=== PATIENT | male | born 1985 | race Caucasian/White ===

== ENCOUNTER 2025-07-06 04:02 | Inpatient (IN) | payer OTHER ==
[~2025-07-06] VITALS: Ht 188 cm; Wt 109.1 kg
[2025-07-06] MEDS ORDERED: CLINDAMYCIN PHOS 150 MG/ML 4 ML VIAL IM ONE (04:30)
[2025-07-06] MEDS: SODIUM CHLORIDE 0.9% 1,000 ML IV ONE (05:34)
[2025-07-06 05:36] LABS: PLATELET COUNT (AUTO) 369 K/uL (150-450); RED BLOOD CELL COUNT(AUTO) 4.86 MIL/uL (4.50-5.90); RED CELL DISTRIBUTION WIDTH 14.3 % (11.5-14.5); WHITE BLOOD COUNT (AUTO) 9.1 K/uL (4.5-11.0)
[2025-07-06] MEDS: FAMOTIDINE 20 MG/2 ML VIAL IVP ONE (05:45)
[2025-07-06 05:46] LABS: CALCIUM, TOTAL 8.7 mg/dL (8.8-10.5); CREATININE 1.05 mg/dL (0.60-1.30); GLOMERULAR FILTR. RATE CALC > 60 mL/min (>60); GLUCOSE,RANDOM 99 mg/dL (70-110); SODIUM SERUM 138 mmol/L (136-145); UREA NITROGEN, BLOOD 8 mg/dL (7-18)
[2025-07-06] MEDS: PB/HYOSCY/ATR/SCOP/LIDO/MAALOX 55 ML BOTTLE PO ONE (05:46)
[2025-07-06] MEDS: MORPHINE SULFATE 2 MG/ML SYRINGE IVP ONE ×2 (06:27→07:48)
[2025-07-06] MEDS: BACITRACIN ZINC/POLYMYXIN B 14.2 GM OINTMENT TP SCH (10:15)
[2025-07-06] MEDS ORDERED: MAGNESIUM HYDROXIDE SUSPENSION 30 ML UDCUP PO PRN (10:15)
[2025-07-06] MEDS: ACETAMINOPHEN 325 MG TABLET PO PRN (11:28)
[2025-07-06 11:44] LABS: APPEARANCE,URINE CLEAR (CLEAR); GLUCOSE, URINE (UA) NEGATIVE (NEGATIVE); LEUKOCYTE ESTERASE ,URINE NEGATIVE (NEGATIVE); NITRATE,URINE NEGATIVE (NEGATIVE); OCCULT BLOOD,URINE NEGATIVE (NEGATIVE); SPECIFIC GRAVITIY, URINE 1.019 (1.003-1.030)
[2025-07-06 11:47] LABS: PH,URINE DRUG SCREEN 7.0 (5.0-8.0)
[2025-07-06 11:54] LABS: ALCOHOL, URINE DRUG SCREEN NEGATIVE (NEGATIVE); AMPHET/METH SCREEN,URINE NEGATIVE (NEGATIVE); BARBITURATE SCREEN, URINE NEGATIVE (NEGATIVE); CANNABINOID SCREEN,URINE NEGATIVE (NEGATIVE); COCAINE SCREEN,URINE NEGATIVE (NEGATIVE); METHADONE SCREEN, URINE NEGATIVE (NEGATIVE)
[2025-07-06 12:57] VITALS: BP 163/97; PULSE 99; RESP 18; TEMP 98.2; O2SAT 96
[2025-07-06] MEDS ORDERED: DOCUSATE SODIUM 100 MG CAPSULE PO SCH (21:00)
[2025-07-06] MEDS ORDERED: PANTOPRAZOLE SODIUM 40 MG/VIAL IVP SCH (21:00)
[2025-07-07] MEDS ORDERED: PANTOPRAZOLE SODIUM 40 MG DR TABLET PO SCH (09:00)
== END 2025-07-06 16:30 | disposition left against medical advice (07) | DRG 395 ==
LOC: EDBD 04:30 → EMS 04:30 → EDH 10:09 → 6S 13:00
PROVIDERS: ADMIT Internal Medicine; ATTEND Internal Medicine
DX: T18.2XXA Foreign body in stomach, initial encounter (principal); E66.9 Obesity, unspecified; F41.9 Anxiety disorder, unspecified; F32.9 Major depressive disorder, single episode, unspecified; W44.A9XA Other batteries entering into or through a natural orifice, initial encounter; S50.812A Abrasion of left forearm, initial encounter; S50.811A Abrasion of right forearm, initial encounter; Z68.30 Body mass index [BMI] 30.0-30.9, adult; Y92.89 Other specified places as the place of occurrence of the external cause; Y93.89 Activity, other specified; Y99.8 Other external cause status
CPT/HCPCS: 70486; 71045; 74018; 74176; 80048; 80307; 81003; 85025; 96361; 96374; 96375; 96376; 99285; G0480; J2270; J3490; J7030; 36415-L1; 36415-TC

== ENCOUNTER 2025-09-19 05:41 | Inpatient (IN) | payer OTHER ==
[~2025-09-19] VITALS: Ht 188 cm; Wt 122.7 kg
[2025-09-19 07:57] LABS: PLATELET COUNT (AUTO) 325 K/uL (150-450); RED BLOOD CELL COUNT(AUTO) 4.84 MIL/uL (4.50-5.90); RED CELL DISTRIBUTION WIDTH 14.4 % (11.5-14.5); WHITE BLOOD COUNT (AUTO) 7.2 K/uL (4.5-11.0)
[2025-09-19 08:06] LABS: APPEARANCE,URINE CLEAR (CLEAR); GLUCOSE, URINE (UA) NEGATIVE (NEGATIVE); LEUKOCYTE ESTERASE ,URINE NEGATIVE (NEGATIVE); NITRATE,URINE NEGATIVE (NEGATIVE); OCCULT BLOOD,URINE NEGATIVE (NEGATIVE); SPECIFIC GRAVITIY, URINE 1.008 (1.003-1.030)
[2025-09-19 08:07] LABS: CALCIUM, TOTAL 8.9 mg/dL (8.8-10.5); CREATININE 0.90 mg/dL (0.60-1.30); GLOMERULAR FILTR. RATE CALC > 60 mL/min (>60); GLUCOSE,RANDOM 99 mg/dL (70-110); SODIUM SERUM 139 mmol/L (136-145); UREA NITROGEN, BLOOD 8 mg/dL (7-18)
[2025-09-19 08:39] LABS: ASPARTATE AMINOTRANSFERASE 26.0 U/L (15-37); TOTAL PROTEIN, SERUM 8.2 g/dL (6.4-8.2)
[2025-09-19] MEDS: FentaNYL CITRATE PF 100 MCG/2 ML VIAL IVP ONE (09:44)
[2025-09-19] MEDS: KETOROLAC TROMETHAMINE 30 MG/ML VIAL IVP ONE (09:44)
[2025-09-19 11:07] VITALS: BP 143/84; PULSE 68; RESP 18; TEMP 99.1; O2SAT 100
== END 2025-09-19 19:07 | disposition left against medical advice (07) | DRG 394 ==
LOC: EMS 05:43 → EDH 09:47 → 6S 10:50
PROVIDERS: ADMIT Hospitalist; ATTEND Hospitalist
DX: T18.9XXA Foreign body of alimentary tract, part unspecified, initial encounter (principal); F33.2 Major depressive disorder, recurrent severe without psychotic features; F41.9 Anxiety disorder, unspecified; F60.3 Borderline personality disorder; W44.A9XA Other batteries entering into or through a natural orifice, initial encounter; Z53.21 Procedure and treatment not carried out due to patient leaving prior to being seen by health care provider; Y93.89 Activity, other specified; Y92.89 Other specified places as the place of occurrence of the external cause; Y99.8 Other external cause status
CPT/HCPCS: 74019; 74176; 80048; 80076; 81003; 85025; 85610; 96374; 96375; 99285; J1885; J3010